=== PATIENT | female | born 1970 | race Caucasian/White ===

== ENCOUNTER → 2024-10-22 15:49 | Outpatient (CLI) | payer OTHER, SELFPAY ==
--- NOTE | 2024-10-22 15:54 | DI.RAD.S_ITS ---
PROCEDURE: XR KNEE RT 3V INDICATIONS: r/o fracture TECHNIQUE: 3 views of the knee were acquired. COMPARISON: None. FINDINGS AND IMPRESSION: No displaced fracture. Minimal arthrosis. There is slight lateral patellar tilt. Trace joint effusion. Mild prepatellar soft tissue swelling. If there is high concern for further derangement, consider MRI evaluation. Dictated by: Niko Palacios M.D. on 10/22/2024 at 15:11 Approved by: Niko Palacios M.D. on 10/22/2024 at 15:12
== END ==
PROVIDERS: Referring Provider Chiropractor; Visit Provider Chiropractor
DX: S80.01XA Contusion of right knee, initial encounter (principal); M79.89 Other specified soft tissue disorders; X58.XXXA Exposure to other specified factors, initial encounter
CPT/HCPCS: 73562